=== PATIENT | male | born 1960 | race Caucasian/White ===

== ENCOUNTER 2016-08-07 08:32 | Observation (INO) | payer BC ==
[~2016-08-07] VITALS: Ht 172.7 cm; Wt 68.0 kg
[2016-08-07 08:34] VITALS: BP 116/72; PULSE 80; RESP 20; TEMP 97.8; O2SAT 98
[2016-08-07] MEDS ORDERED: LISI10TA3 PO (08:41)
[2016-08-07] MEDS ORDERED: ATOR20TA15 PO (08:41)
[2016-08-07] MEDS ORDERED: ASPI81CH CHEW (08:41)
[2016-08-07 09:19] LABS: AUTOMATED NEUTROPHIL # 7.2 TH/MM3 (1.8-7.7); BASOPHIL # 0.1 TH/MM3 (0-0.2); BASOPHIL % 1.1 % (0.0-2.0); EOSINOPHIL # 0.4 TH/MM3 (0-0.4); EOSINOPHIL % 3.6 % (0.0-4.0); HEMATOCRIT 42.5 % (39.0-51.0); HEMO FLAGS DIFF FINAL; LYMPH % 22.1 % (9.0-44.0); LYMPHOCYTE # 2.4 TH/MM3 (1.0-4.8); MEAN CELL VOLUME 89.7 FL (80.0-100.0); MEAN CORPUSCULAR HEMOGLOBIN 29.4 PG (27.0-34.0); MEAN CORPUSCULAR HGB CONC 32.7 % (32.0-36.0); MONO % 6.5 % (0.0-8.0); NEUT % 66.7 % (16.0-70.0); PLATELET COUNT 229 TH/MM3 (150-450); RED BLOOD COUNT 4.74 MIL/MM3 (4.50-5.90); RED CELL DISTRIBUTION WIDTH 14.3 % (11.6-17.2); WHITE BLOOD COUNT 10.8 TH/MM3 (4.0-11.0)
--- NOTE | 2016-08-07 09:20 | PD ---
HPI Chief Complaint: Chest Pain Time Seen by Provider: 09:13 Travel History International Travel<30 days: No Contact w/Intl Traveler<30days: No Traveled to known affect area: No History of Present Illness HPI 55-year-old male patient from [facility], with history of CAD status post stent, hypertension, high cholesterol, presents to the ER today because of substernal chest pains that started last night which she states is constant and pressure-like in nature. He states that it is currently a 1-2 out of 10. He denies any shortness of breath, nausea, or other symptoms. He states that he also had some tingling in both legs. He does not know any exacerbating or alleviating factors. Modifying Factors: None Associated Signs & Symptoms: Chest pain Risk Factors: Cardiac history PFSH Past Medical History Hx Anticoagulant Therapy: Yes Cardiovascular Problems: Yes High Cholesterol: Yes Hypertension: Yes Myocardial Infarction: Yes Past Surgical History Cardiac Surgery: Yes (STENT) Social History Alcohol Use: Yes (OCC) Tobacco Use: Yes (PPD) Substance Use: No Allergies-Medications (Allergen,Severity, Reaction): Coded Allergies: No Known Allergies (Unverified , 08/07/16) Reported Meds & Prescriptions Reported Meds & Active Scripts Active Reported Aspirin 81 Mg Chew 81 Mg CHEW DAILY Atorvastatin (Atorvastatin Calcium) Unknown Strength Tab Unknown Dose PO DAILY Lisinopril Unknown Strength Tab Unknown Dose PO DAILY Review of Systems Except as stated in HPI: all other systems reviewed are Neg Physical Exam Narrative GENERAL: Well-developed, pleasant, middle-age white male patient currently in no acute distress. Awake and oriented 3. SKIN: Warm and dry. HEAD: Atraumatic. Normocephalic. EYES: Pupils equal and round. No scleral icterus. No injection or drainage. ENT: No nasal bleeding or discharge. Mucous membranes pink and moist. NECK: Trachea midline. No JVD. CARDIOVASCULAR: Regular rate and rhythm. No murmur appreciated. Pulses are present and equal bilaterally. RESPIRATORY: No accessory muscle use. Clear to auscultation. Breath sounds equal bilaterally. GASTROINTESTINAL: Abdomen soft, non-tender, nondistended. Hepatic and splenic margins not palpable. MUSCULOSKELETAL: No obvious deformities. No clubbing. No cyanosis. No edema. NEUROLOGICAL: Awake and alert. No obvious cranial nerve deficits. Motor grossly within normal limits. Normal speech. PSYCHIATRIC: Appropriate mood and affect; insight and judgment normal. Data Data Last Documented VS Vital Signs Date Time Temp Pulse Resp B/P Pulse Ox O2 Delivery O2 Flow Rate FiO2 08/07/16 08:34 97.8 80 20 116/72 98 Room Air Orders Electrocardiogram (08/07/16 08:59) Complete Blood Count With Diff (08/07/16 08:59) Basic Metabolic Panel (Bmp) (08/07/16 08:59) Ckmb (Isoenzyme) Profile (08/07/16 08:59) Troponin I (08/07/16 08:59) Chest, Single Ap (08/07/16 08:59) Iv Access Insert/Monitor (08/07/16 08:59) Ecg Monitoring (08/07/16 08:59) Oxygen Administration (08/07/16 08:59) Oximetry (08/07/16 08:59) Coag Profile (08/07/16 08:59) CKMB (08/07/16 09:03) CKMB% (08/07/16 09:03) Aspirin (Aspirin) (08/07/16 10:00) Sodium Chlorid 0.9% 500 Ml Inj (Ns 500 M (08/07/16 10:00) Labs Laboratory Tests Test 08/07/16 09:03 White Blood Count 10.8 TH/MM3 Red Blood Count 4.74 MIL/MM3 Hemoglobin 13.9 GM/DL Hematocrit 42.5 % Mean Corpuscular Volume 89.7 FL Mean Corpuscular Hemoglobin 29.4 PG Mean Corpuscular Hemoglobin 32.7 % Concent Red Cell Distribution Width 14.3 % Platelet Count 229 TH/MM3 Mean Platelet Volume 9.1 FL Neutrophils (%) (Auto) 66.7 % Lymphocytes (%) (Auto) 22.1 % Monocytes (%) (Auto) 6.5 % Eosinophils (%) (Auto) 3.6 % Basophils (%) (Auto) 1.1 % Neutrophils # (Auto) 7.2 TH/MM3 Lymphocytes # (Auto) 2.4 TH/MM3 Monocytes # (Auto) 0.7 TH/MM3 Eosinophils # (Auto) 0.4 TH/MM3 Basophils # (Auto) 0.1 TH/MM3 CBC Comment DIFF FINAL Differential Comment Prothrombin Time 10.7 SEC Prothromb Time International 1.0 RATIO Ratio Activated Partial 25.4 SEC Thromboplast Time Sodium Level 139 MEQ/L Potassium Level 4.0 MEQ/L Chloride Level 104 MEQ/L Carbon Dioxide Level 29.4 MEQ/L Anion Gap 6 MEQ/L Blood Urea Nitrogen 17 MG/DL Creatinine 0.99 MG/DL Estimat Glomerular Filtration 79 ML/MIN Rate Random Glucose 90 MG/DL Calcium Level 8.4 MG/DL Total Creatine Kinase 104 U/L Troponin I LESS THAN 0.02 NG/ML MDM Medical Decision Making Medical Screen Exam Complete: Yes Emergency Medical Condition: Yes Medical Record Reviewed: Yes Interpretation(s) EKG shows NSR with occasional PAC, no ST elevation or depression, and no arrhythmias. No significant T-wave inversions. Laboratory Tests Test 08/07/16 09:03 Estimat Glomerular Filtration 79 ML/MIN (>89) Rate Calcium Level 8.4 MG/DL (8.5-10.1) Troponin I LESS THAN 0.02 NG/ML (0.02-0.05) Last 24 hours Impressions Chest X-Ray 08/07/16 0859 Signed Impressions: Service Date/Time: Sunday, August 07, 2016 09:12 - CONCLUSION: No acute disease. Ender Cano MD Differential Diagnosis Chest painsACS versus unstable angina versus dysrhythmias versus versus costochondritis Narrative Course Patient states that the chest pain is fairly mild currently and at this point, lab work returns showing significant cardiac enzyme elevations. EKG did not show significant ST changes. Considering his history, my plan would be to admit him for further evaluation in the chest pain center. Aspirin given in the ER. Diagnosis Primary Impression: CHEST PAIN, UNSPECIFIED Admitting Information Admitting Physician Requests: Admit Sin Page MD Aug 07, 2016 09:20
[2016-08-07 09:27] LABS: APTT (PATIENT) 25.4 SEC (24.3-30.1); PROTHROMBIN TIME - PATIENT 10.7 SEC (9.8-11.6)
[2016-08-07 09:30] VITALS: BP 114/85; PULSE 60; RESP 16; O2SAT 97
[2016-08-07 09:34] LABS: ANION GAP 6 MEQ/L (5-15); BICARBONATE 29.4 MEQ/L (21.0-32.0); BLOOD UREA NITROGEN 17 MG/DL (7-18); CHLORIDE 104 MEQ/L (98-107); GLOMERULAR FILTRATION RATE 79 ML/MIN (>89); SODIUM (NA) 139 MEQ/L (136-145)
[2016-08-07 09:39] LABS: CREATINE KINASE 104 U/L (39-308)
--- NOTE | 2016-08-07 09:39 | RADRPT ---
EXAM DATE/TIME: 08/07/2016 09:12 [facility] COMPARISON: No previous studies available for comparison. INDICATIONS : Chest pain. MEDICAL HISTORY : Myocardial infarction. SURGICAL HISTORY : Coronary artery stent. ENCOUNTER: Initial ACUITY: 1 day PAIN SCORE: 2/10 LOCATION: Bilateral chest FINDINGS: A single view of the chest demonstrates the lungs to be symmetrically aerated without evidence of mas s, infiltrate or effusion. The cardiomediastinal contours are unremarkable. Osseous structures are intact. CONCLUSION: No acute disease. Ender Cano MD on August 07, 2016 at 9:37 Board Certified Radiologist. This report was verified electronically.
[2016-08-07 09:51] LABS: CKMB 0.8 NG/ML (0.5-3.6)
[2016-08-07] MEDS ORDERED: NITROGLYCERIN 0.4 MG SL 25 TABS/BTL SL PRN (10:00)
[2016-08-07] MEDS ORDERED: ONDANSETRON HCL 4 MG/2 ML VIAL IV PRN (10:00)
[2016-08-07] MEDS ORDERED: SODIUM CHLORID 0.9% 500 ML INJ 500 ML IV ONE (10:00)
[2016-08-07] MEDS ORDERED: ACETAMINOPHEN 500 MG CPLT PO PRN (10:00)
[2016-08-07] MEDS ORDERED: ASPIRIN 325 MG TAB PO ONE (10:00)
[2016-08-07] MEDS ORDERED: SODIUM CHLORIDE 0.9% FLUSH 5 ML FLUSH IVF PRN (10:00)
[2016-08-07 10:17] VITALS: O2SAT 94
--- NOTE | 2016-08-07 11:04 | HHI.HP ---
HPI Primary Care Physician Non-Staff Chief Complaint Chest pressure History of Present Illness 55-year-old male with known CAD with 1 stent, hyperlipidemia, and hypertension woke up this a.m. with chest pressure. Location substernal, no radiation. Initially chest pressure rated 1/10. Continued to go to work. While at work he developed chest pressure 3/10 with chest pain described as a "ache." Nonexertional. No associated symptoms. No known precipitating or relieving factors. Physician does not make pain better or worse. Deep breathing does not make pain better or worse. (Ricarda Irvin) Review of Systems General: No fatigue,weakness, fever, chills, recent travel, or recent illness. States he's been in his general state of health. HEENT: No HURT, no vision changes CV: As stated above. Current chest pressure much improved with no chest pain. No intermittent leg discomfort. RESP: No SOB, cough, wheeze GI: No nausea, vomiting, bowel changes, diarrhea, constipation, pain, distention , melena, blood in the stool. No change in appetite, no unintentional weight gain or weight loss : No dysuria, urgency, frequency EXT: No lower leg edema, no paraesthesias MS: No discomfort or change in ROM NEURO: No change in memory, dizziness, difficulty with balance, LOC, motor/ sensory deficits PSYCH: No anxiety or depression (Ricarda Irvin) Past Family Social History Allergies: Coded Allergies: No Known Allergies (Unverified , 08/07/16) Past Medical History Hypertension, hyperlipidemia, CAD with one stent to LAD Past Surgical History None Reported Medications Reported Meds & Active Scripts Active Reported Aspirin 81 Mg Chew 81 Mg CHEW DAILY Atorvastatin (Atorvastatin Calcium) Unknown Strength Tab Unknown Dose PO DAILY Lisinopril Unknown Strength Tab Unknown Dose PO DAILY Active Ordered Medications Current Medications Medications (Trade) Dose Ordered Sig/William Route Start Time Stop Time Status Last Admin (NS 500 ml Inj) 500 ml @ 500 mls/hr BOLUS ONCE IV 08/07/16 10:00 08/07/16 10:59 08/07/16 10:04 (Tylenol) 500 mg Q4H PRN PO 08/07/16 10:00 (Zofran Inj) 4 mg Q6H PRN IV 08/07/16 10:00 (Nitrostat Sl) 0.4 mg Q5M PRN SL 08/07/16 10:00 (Aspirin) 325 mg DAILY PO 08/08/16 09:00 Family History Noncontributory for early onset cardiovascular disease Social History , 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 Known hypertension and hyperlipidemia. No known diabetes. Smokes half pack daily, states he is trying to quit smoking. Used to smoke a carton of cigarettes weekly now smokes 3 packs weekly. Drinks alcohol occasionally. Denies any illegal drug use. He is active walks 5-7 miles daily and does not experience chest discomfort during activity. Past cardiac testing May 2015stent placement to LAD. Stent placed while working in [place], [place]. Describes a non-STEMI. Prior to heart attack he did not see a primary care provider 30 years. Chest discomfort with first NE described as indigestion which progressively got worse, vomiting, and severe left anterior chest pain. [employer] in [facility]. Follows with real estate listing consultant every 6 months. No recent stress testing. Recent echocardiogram unremarkable, told he did not have cardiac damage from NE. Carotid ultrasound and bilateral leg studies recently completed also unremarkable. (Ricarda Irvin) Physical Exam Vital Signs Vital Signs Date Time Temp Pulse Resp B/P Pulse Ox O2 Delivery O2 Flow Rate FiO2 08/07/16 10:17 94 08/07/16 09:30 60 16 114/85 97 Room Air 08/07/16 08:34 97.8 80 20 116/72 98 Room Air Physical Exam GENERAL: Alert WN, WD, NAD, pleasant, male HEAD: NC, AT EYES: Sclera clear, conjunctiva without injection, pupils equal and round ENT: Mucous membranes pink and moist, no nasal discharge or bleeding NECK: Supple, no masses, trachea midline CV: RRR, without murmur, rub, gallop, no JVD, S1-S2 no S3-S4. RESP: Expiratory wheeze bilateral upper lobes otherwise clear bases. No crackles or rhonchi. Symmetrical chest rise, nonlabored, able to speak in full sentences. ABD: Soft, NT, ND, no masses, positive bowel tones EXT: Pulses +24, no dependent edema MS: Normal tone 4 extremities, nontender, no obvious deformities, full range of motion NEURO: CN II through CN XII grossly intact, motor strength 5/5, gait WNL PSYCH: A+O 3, pleasant affect, appropriate speech, appropriate mood and affect , insight and judgment SKIN: Normal turgor, normal texture, no lesions, no rashes, even hair distribution Laboratory Laboratory Tests Test 08/07/16 09:03 White Blood Count 10.8 Red Blood Count 4.74 Hemoglobin 13.9 Hematocrit 42.5 Mean Corpuscular Volume 89.7 Mean Corpuscular Hemoglobin 29.4 Mean Corpuscular Hemoglobin 32.7 Concent Red Cell Distribution Width 14.3 Platelet Count 229 Mean Platelet Volume 9.1 Neutrophils (%) (Auto) 66.7 Lymphocytes (%) (Auto) 22.1 Monocytes (%) (Auto) 6.5 Eosinophils (%) (Auto) 3.6 Basophils (%) (Auto) 1.1 Neutrophils # (Auto) 7.2 Lymphocytes # (Auto) 2.4 Monocytes # (Auto) 0.7 Eosinophils # (Auto) 0.4 Basophils # (Auto) 0.1 CBC Comment DIFF FINAL Differential Comment Prothrombin Time 10.7 Prothromb Time International 1.0 Ratio Activated Partial 25.4 Thromboplast Time Sodium Level 139 Potassium Level 4.0 Chloride Level 104 Carbon Dioxide Level 29.4 Anion Gap 6 Blood Urea Nitrogen 17 Creatinine 0.99 Estimat Glomerular Filtration 79 Rate Random Glucose 90 Calcium Level 8.4 Total Creatine Kinase 104 Creatine Kinase MB 0.8 Troponin I LESS THAN 0.02 (Ricarda Irvin) Result Diagram: 08/07/1603 08/07/16 0903 Imaging Last Impressions Chest X-Ray 08/07/16 0859 Signed Impressions: Service Date/Time: Sunday, August 07, 2016 09:12 - CONCLUSION: No acute disease. Ender Cano MD Course EKGs First EKG normal sinus rhythm, normal axis, no ST or T-segment changes and occasional PAC (Ricarda Irvin) Assessment and Plan Assessment and Plan #1 Chest pain-admitted to chest pain center. Will undergo 3 sets of cardiac enzymes, EKGs, and have cardiac monitoring. Will be seen and evaluated by Dr. Max Moreno. Is agreeable to any further testing required. Further recommendation to follow after assessment by real estate listing consultant. #2 Hypertensionpatient took lisinopril dose this a.m., will continue to monitor. We'll reorder if patient not later discharged this afternoon. #3 Hyperlipidemiapatient took atorvastatin this a.m. Discussed in length benefits of atorvastatin in regards to further cardiac injury. #4 Tobacco usediscussed and stressed the importance of tobacco sensation. Strongly encouraged to quit smoking. (Ricarda Irvin) Assessment and Plan Agree with above. Will p[socorro stress test. Smoking cessation discussed (Max Moreno MD) Ricarda Irvin Aug 07, 2016 11:04 Max Moreno MD Aug 07, 2016 13:20
[2016-08-07 12:39] VITALS: PULSE 48
[2016-08-07 12:40] VITALS: BP 130/72; PULSE 49; RESP 18; O2SAT 97
[2016-08-07 13:36] LABS: CREATINE KINASE 84 U/L (39-308)
--- NOTE | 2016-08-07 15:38 | HHI.DCPOC ---
Discharge Care Plan Diagnosis: (1) Atypical chest pain (2) Hx of coronary artery disease (3) Tobacco abuse Goals to Promote Your Health * To prevent worsening of your condition and complications * To maintain your health at the optimal level Directions to Meet Your Goals Take your medications as prescribed Follow your dietary instruction Follow activity as directed Keep your appointments as scheduled Take your immunizations and boosters as scheduled If your symptoms worsen call your PCP, if no PCP go to Urgent Care Center or Emergency Room Smoking is Dangerous to Your Health. Avoid second hand smoke Call the 24-hour hour crisis hotline for domestic abuse at Ricarda Irvin Aug 07, 2016 15:38
--- NOTE | 2016-08-07 15:38 | HHI.DCPOC ---
Discharge Care Plan Diagnosis: (1) Atypical chest pain (2) Hx of coronary artery disease (3) Tobacco abuse Goals to Promote Your Health * To prevent worsening of your condition and complications * To maintain your health at the optimal level Directions to Meet Your Goals Take your medications as prescribed Follow your dietary instruction Follow activity as directed Keep your appointments as scheduled Take your immunizations and boosters as scheduled If your symptoms worsen call your PCP, if no PCP go to Urgent Care Center or Emergency Room Smoking is Dangerous to Your Health. Avoid second hand smoke Call the 24-hour hour crisis hotline for domestic abuse at Ricarda Irvin Aug 07, 2016 15:38
[2016-08-07] MEDS ORDERED: NITR1SUB3 SL (15:49)
--- NOTE | 2016-08-07 16:08 | TR ---
Date Performed: 08/07/2016 Time Performed: 14:25:05 DOCTOR: Max Moreno DRUG LIST: CLINICAL HISTORY: REASON FOR TEST: REASON FOR ENDING: OBSERVATION: CONCLUSION: Ike protocol completed. Stopped sec to reaching target heart rate and leg fatigue. Maximum AA=188 Target HR Achieved=89.0% Maximum CC=009/68 Total Exercise Time=9:20. No reprod chest discomfort. No st t segment changes to sugg ischemia. Good exercise tolerance. Normal bp response. Re covery quick and unremarkable. COMMENTS: Patient exercised using the Ike protocol. No electrocardiographic changes were seen to suggest ischemia. Hemodynamic response to exercise was normal. No significant arrhythmia was prese nt.
--- NOTE | 2016-08-07 16:08 | EKG ---
Date Performed: 08/07/2016 Time Performed: 08:44:15 PTAGE: 55 years EKG: Sinus rhythm WITH OCCASIONAL SUPRAVENTRICULAR PREMATURE COMPLEXES BORDERLINE ECG NO PREVIOUS TRACING DOCTOR: Max Moreno Interpretating Date/Time 08/07/2016 16:06:26
[2016-08-07] MEDS ORDERED: SODIUM CHLORIDE 0.9% FLUSH 5 ML FLUSH IVF SCH (21:00)
[2016-08-08] MEDS ORDERED: ASPIRIN 325 MG TAB PO SCH (09:00)
--- NOTE | 2016-08-08 16:50 | EKG ---
Date Performed: 08/07/2016 Time Performed: 11:57:12 PTAGE: 55 years EKG: SINUS BRADYCARDIA BORDERLINE ECG Since PREVIOUS TRACING , no significant change noted DOCTOR: Mayra Sun Interpretating Date/Time 08/08/2016 16:49:46
== END 2016-08-07 16:03 | disposition home or self-care (01) ==
LOC: NEPE 08:32 → NEDA 09:50 → NEPGCP 12:12
PROVIDERS: ADMIT Internal Medicine Cardiovascular Disease; ATTEND Internal Medicine Cardiovascular Disease
DX: R07.89 Other chest pain (principal); I10 Essential (primary) hypertension; I25.10 Atherosclerotic heart disease of native coronary artery without angina pectoris; E78.5 Hyperlipidemia, unspecified; E78.00 Pure hypercholesterolemia, unspecified; I25.2 Old myocardial infarction; F17.210 Nicotine dependence, cigarettes, uncomplicated; Z95.5 Presence of coronary angioplasty implant and graft
CPT/HCPCS: 71010; 80048; 82550; 82552; 84484; 85025; 85610; 85730; 93005; 93017; 99285; G0378; J7040